=== PATIENT | female | born 1995 | race Caucasian/White ===

== ENCOUNTER 2018-11-21 20:41 | Emergency (ER) | payer OTHER ==
[~2018-11-21] VITALS: Ht 154.9 cm; Wt 55.3 kg
[2018-11-21 20:50] VITALS: BP 115/68; PULSE 80; RESP 18; Ht 154.9 cm; Wt 55.3 kg
--- NOTE | 2018-11-21 22:45 | ERD ---
ER Documentation Chief Complaint Chief Complaint painful/burning/frequent urination x 2 days HPI 23-year-old female presenting with multiple complaints including epigastric aching pain radiating to her right upper quadrant, 5 out of 10, with associated nausea but no vomiting. No associated fevers or chills. No alleviating or exac erbating factors. She also complains of 2 months of dysuria and has recently seen some blood in her urine as well. Her menstrual cycles are normal. She is not on any medications at this time. ROS All systems reviewed and are negative except as per history of present illness. Medications Home Meds Active Scripts Ibuprofen* (Motrin*) 400 Mg Tab, 400 MG PO Q6H PRN for PAIN AND OR ELEVATED TEMP, #30 TAB Prov:SAMMI HARVEY MD 11/21/18 Allergies Allergies: Coded Allergies: No Known Allergy (Unverified , 10/05/13) PMhx/Soc Medical and Surgical Hx: pt denies Medical Hx, pt denies Surgical Hx Hx Alcohol Use: No Hx Substance Use: No Hx Tobacco Use: No Smoking Status: Never smoker FmHx Family History: No diabetes Physical Exam Vitals Vital Signs Date Temp Pulse Resp B/P (MAP) Pulse Ox O2 O2 Flow FiO2 Time Delivery Rate 11/21/18 98.8 80 18 115/68 100 20:50 (84) Physical Exam Const: No acute distress Head: Atraumatic Eyes: Normal Conjunctiva ENT: Normal External Ears, Nose and Mouth. Neck: Full range of motion. No meningismus. Resp: Clear to auscultation bilaterally Cardio: Regular rate and rhythm, no murmurs Abd: Soft, epigastric and right upper quadrant tenderness to palpation without rebound or guarding. No McBurney's point tenderness. Non distended. No masses. Normal bowel sounds Skin: No petechiae or rashes Back: No midline or flank tenderness Ext: No cyanosis, or edema Neur: Awake and alert Psych: Normal Mood and Affect Result Diagram: 11/21/18224111/21/182241 Results 24 hrs Laboratory Tests Test 11/21/18 22:41 11/21/18 22:42 11/21/18 22:46 Urine Color YELLOW Urine Clarity SLIGHTLY CLOUDY Urine pH 7.0 Urine Specific [place] 1.017 Urine Ketones NEGATIVE mg/dL Urine Nitrite NEGATIVE mg/dL Urine Bilirubin NEGATIVE mg/dL Urine Urobilinogen NEGATIVE mg/dL Urine Leukocyte Esterase NEGATIVE [place] Urine Microscopic RBC 4 /HPF Urine Microscopic WBC 2 /HPF Urine Squamous Epithelial Cells FEW /HPF Urine Mucus FEW /HPF Urine Hemoglobin 3+ mg/dL Urine Glucose NEGATIVE mg/dL Urine Total Protein NEGATIVE mg/dl White Blood Count 8.9 10^3/ul Red Blood Count 4.64 10^6/ul Hemoglobin 13.4 g/dl Hematocrit 40.9 % Mean Corpuscular Volume 88.1 fl Mean Corpuscular Hemoglobin 28.9 pg Mean Corpuscular 32.8 g/dl Hemoglobin Concent Red Cell Distribution Width 12.0 % Platelet Count 334 10^3/UL Mean Platelet Volume 9.2 fl Immature Granulocytes % 0.300 % Neutrophils % 53.8 % Lymphocytes % 34.9 % Monocytes % 6.4 % Eosinophils % 3.8 % Basophils % 0.8 % Nucleated Red Blood Cells % 0.0 /100WBC Immature Granulocytes # 0.030 10^3/ul Neutrophils # 4.8 10^3/ul Lymphocytes # 3.1 10^3/ul Monocytes # 0.6 10^3/ul Eosinophils # 0.3 10^3/ul Basophils # 0.1 10^3/ul Nucleated Red Blood Cells # 0.0 10^3/ul Sodium Level 141 mmol/L Potassium Level 3.9 mmol/L Chloride Level 103 mmol/L Carbon Dioxide Level 28 mmol/L Anion Gap 10 Blood Urea Nitrogen 19 mg/dl Creatinine 0.54 mg/dl Est Glomerular Filtrat > 60 mL/min Rate mL/min Glucose Level 95 mg/dl Calcium Level 10.3 mg/dl Total Bilirubin 0.5 mg/dl Direct Bilirubin 0.00 mg/dl Indirect Bilirubin 0.5 mg/dl Aspartate Amino Transf (AST/SGOT) 22 IU/L Alanine 12 IU/L Aminotransferase (ALT/SGPT) Alkaline Phosphatase 99 IU/L Total Protein 8.2 g/dl Albumin 4.7 g/dl Globulin 3.50 g/dl Albumin/Globulin Ratio 1.34 Lipase 92 U/L POC Beta HCG, Qualitative NEGATIVE Current Medications Medications Dose Sig/Brannon Start Time Status Last (Trade) Ordered Route PRN Stop Time Admin Dose Reason Admin Ibuprofen 400 mg ONCE ONCE 11/21/18 DC 11/21/18 (Motrin) PO 23:00 11/21/18 22:53 23:01 Famotidine 20 mg ONCE ONCE 11/21/18 DC 11/21/18 (Pepcid) PO 23:00 11/21/18 22:53 23:01 Procedures/MDM EMERGENT LABS AND DIAGNOSTIC STUDIES: Lab Results above were reviewed and interpreted by me. CBC: no anemia or evidence of infection CMP: No evidence of clinically significant electrolyte abnormality, acidosis, renal failure, hypoglycemia, liver disease, or biliary obstruction Lipase: no evidence of pancreatitis UA: Microscopic hematuria noted. No evidence of infection negative Radiology Results as interpreted by Radiology below were reviewed by Moises Harvey MD: Right upper quadrant ultrasound: IMPRESSION: Normal gallbladder without gallstones. Normal examination. Initial Nursing notes reviewed. Previous Medical Records requested via the Electronic Health Record. EMERGENCY DEPARTMENT COURSE / MEDICAL DECISION MAKING: Differential includes but is not limited to biliary colic, biliary obstruction, acute cholecystitis, pancreatitis, hepatitis,gastritis, colitis, ureterolithiasis, pyelonephritis. Labs were ordered to evaluate for above and were only notable for microscopic hematuria. There was no evidence of UTI. Ultrasound of the abdomen ordered to evaluate gallbladder and showed no acute pathology. I recommended patient follow-up with her primary care doctor regarding her chronic dysuria. Ibuprofen was given for her pain. Return precautions discussed. Departure Diagnosis: Primary Impression: Epigastric abdominal pain Additional Impressions: Dysuria Hematuria Hematuria type: unspecified type Qualified Codes: R31.9 - Hematuria, unspecified Condition: Stable SAMMI HARVEY MD Nov 21, 2018 22:45
[2018-11-21] MEDS ORDERED: FAMOTIDINE 20 MG TAB PO ONE (23:00)
[2018-11-21] MEDS ORDERED: IBUPROFEN 200 MG TAB PO ONE (23:00)
[2018-11-21] MEDS ORDERED: IBUP-1561 PO (23:46)
== END 2018-11-22 00:02 | disposition home or self-care (01) ==
LOC: FTE 20:41
DX: R10.13 Epigastric pain (principal); R30.0 Dysuria; R31.9 Hematuria, unspecified
CPT/HCPCS: 36415; 76705; 80053; 81001; 81025; 83690; 85025; 87086; Z7502; Z7610